=== PATIENT | male | born 1985 | race African-American/Black ===

== ENCOUNTER 2016-08-17 10:20 | Day surgery (SDC) | payer OTHER ==
[2016-08-17] VITALS (7 sets, daily range): BP systolic 78–127; BP diastolic 55–80; PULSE 70–75; RESP 14–16; O2SAT 97–100
[~2016-08-17] VITALS: Ht 185.4 cm; Wt 80.0 kg
--- NOTE | 2016-08-17 07:32 | PCM.HPANE ---
Patient Data Surgeon Admitting Provider: Attending Provider:Jagdish Nassar MD Primary Care Physician:Harsh Other Provider:Bethany Curiel Anesthesia Reason for Visit Melena, Dysphagia Ht/WT & BMI Body Mass Index Allergies Coded Allergies: No Known Drug Allergies (Verified Allergy, Unknown, 08/16/16) Past Anesthesia History Anesthesia History: Denies:: Abnormal Airway, Difficult Intubation Diabetes History Hx Diabetes?: No MRSA MRSA: No Medications Hypertension Medication: No Home Meds Incl Beta Hazel: No Reported Medications Omeprazole 20 Mg Capsule.dr20 Mg PO DAILY Ref 0 08/17/16 History History of ENT Problems?: No Hx of Heart Problems?: No Hx of Respiratory Problem?: No Hx Neurologic Problems?: No Hx of GI Problems?: No Hx of Problems?: No HX of Peritoneal Dialysis: No Hx Musculoskeletal Problems?: No Hx of Psycho/Social Problems?: No Hx Surgeries?: No Hx Any Other Health Problems?: No Hx Diabetes: No Hx Alcohol Use: NoHx Substance Use: No Stop/Bang Treated for Sleep Apnea?: No Do You Have a CPAP Machine?: No Risk Assessment Category Category 1A: Patient has history of documented sleep apnea, and HAS NOT received any narcotic, sedative or anesthesia administration during this stay. Category 1B: Patient has history of documented sleep apnea, and HAS received any narcotic , sedative or anesthesia administration during this stay Category 2: Patient has SUSPECTED Obstructive Sleep Apnea, and HAS received any narcotic , sedative or anesthesia administration during this stay. Category 3: Patient has SUSPECTED Obstructive Sleep Apnea and HAS NOT received narcotic, sedative or anesthesia administration during this stay. Category 4: Outpatient in Procedural Areas with known sleep apnea or who screen positive for High Risk via the STOP/BANG questionnaire. Exam Exam General Appearance: Alert, Oriented X3, Cooperative, No Acute Distress HEENT/AIRWAY: MP 2 Lungs: Clear to Auscultation, Normal Air Movement Heart: Exam Unremarkable, Regular Rate/Rhythm, No Murmurs/Rubs/Gallops Plan Impression Patient chart reviewed, patient interviewed and anesthestic plan with risks, benefits, and alternatives discussed, and informed consent obtained. ASA Physical Status: ASA2 Mod Systemic Disease Anesthetic Plan: MAC Bene/Risks/Altern/Consents: Yes HP Complete Prior to Induction: Yes Chaparro Queen MD Aug 17, 2016 07:32
[2016-08-17] MEDS ORDERED: OMEP20CA11 PO (10:40)
[2016-08-17] MEDS ORDERED: Lactated Ringer's 1,000 ML IV SCH (11:34)
[2016-08-17] MEDS ORDERED: MetoCLOpramide 5 mg/mL 2 mL Inj IVPUSH PRN (11:35)
[2016-08-17] MEDS ORDERED: Ondansetron 2 mg/mL 2 mL Inj IVPUSH PRN (11:35)
[2016-08-17] MEDS: Lactated Ringer's 1,000 ML IV ONE ×3 (11:39→11:57)
--- NOTE | 2016-08-17 13:27 | ENDO ---
[address] [address] ENDOSCOPY PROCEDURE PATIENT: UMM POE : 1985 MR#: [id number] ADMIT: 08/17/2016 JOB ID: [id number] DATE: 08/17/2016 PROCEDURE: Esophagogastroduodenoscopy with biopsy and a colonoscopy. INDICATIONS: A 31-year-old male with symptoms of intermittent dysphagia and odynophagia of uncertain etiology. He also reports constipation and hemorrhoidal bleeding at times. He has a family history of colon cancer in his dad in his 60s. EQUIPMENT: PCF H 190 L and a GIFH 180 J. SEDATION: Monitored anesthesia as provided by Dr. Chaparro Queen. COMPLICATIONS: None identified. BOWEL PREPARATION: Fair, adequate examination. PROCEDURAL INFORMATION: After the risks and benefits were explained, written and verbal informed consent was obtained. The patient was brought into the endoscopy suite and placed into the left lateral decubitus position. Sedation was achieved using the above-stated medications with the addition of oxygen via nasal cannula. The scope was introduced into the mouth through the bite block, and advanced under direct visualization to the second portion of the duodenum. The scope was slowly withdrawn to carefully examine the mucosa for any defects or lesions. Retroflexed views were accomplished in the stomach. The stomach was decompressed. The scope removed the patient who tolerated the procedure well. The patient was then turned around. A digital rectal examination accomplished. Mild to moderate internal hemorrhoids, nonbleeding, nonthrombosed identified. The scope was introduced into the rectum and advanced under direct visualization to the cecum as identified by the appendiceal orifice and ileocecal valve. The scope was slowly withdrawn to carefully examine the mucosa for any defects or lesions. Multiple direct views were made through the dentate line for exclusion of pathology. The colon was decompressed. The scope removed the patient who tolerated the procedure well. FINDINGS: 1. Duodenum: This appeared visually normal from the bulb through to the second portion. 2. Stomach: Mild diffuse gastropathy identified. Random biopsy was taken for exclusion of Helicobacter or any other underlying histopathology. No ulcers. No mass lesions. No outlet obstruction. Retroflexed views of the LES were unremarkable. 3. Esophagus: The squamocolumnar junction correlated with the top of the gastric folds. The GE junction was judged to be at approximately 42 cm from the incisors. The patient had a relatively relaxed lower esophageal sphincter mechanism and a very subtle sliding hiatal hernia. However, no other pathology was seen in the esophagus. 4. Colon: The patient had a diffuse melanosis coli. No evidence of proctitis. No colitis. No significant polyps or mass lesions throughout. Moderate internal hemorrhoids were noted on direct views. ENDOSCOPIC DIAGNOSES: 1. Subtle sliding hiatal hernia. 2. Mild gastropathy. Record. 3. Melanosis coli. 4. Hemorrhoids. RECOMMENDATIONS: 1. Await histopathology. 2. If Helicobacter is found, it will need to be eradicated with standard triple therapy. 3. The patient is asymptomatic with respect to swallowing at present. No further intervention is recommended at this time. 4. The patient is encouraged to utilize warm Epsom salts as needed for hemorrhoidal engorgement and/or irritation. He is also encouraged to incorporate 2 tablespoons of ground flaxseed fiber mixed with 8 ounces of water or juice each day to help become more regular with soft fully evacuated movements. Follow up in GI clinic p.r.n. 5. Repeat colonoscopy at age 38 considering family history.
--- NOTE | 2016-08-17 15:39 | PCM.ANEP1 ---
Post Anesthesia Phase 1 PACU Phase 1 Assessment Vital Signs Vital Signs Date Time Temp Pulse Resp B/P Pulse Ox O2 Delivery O2 Flow Rate FiO2 08/17/16 12:52 70 16 111/80 100 Room Air 08/17/16 12:42 70 14 109/74 100 Room Air 08/17/16 12:32 71 16 104/65 100 Room Air 08/17/16 12:22 71 14 93/67 99 Room Air 08/17/16 12:17 71 14 79/58 97 Room Air 08/17/16 12:12 36.3 75 16 78/55 97 Room Air 08/17/16 10:38 36.5 71 14 127/75 100 Room Air Anesthetic Administered: MAC Level of Alertness: Awake, talking Pain: No Nausea or Vomiting: No Oxygen Delivery: Nasal Cannula Lungs: Clear to Auscultation, Normal Air Movement Dermatome Level: Full Sensation Chaparro Queen MD Aug 17, 2016 15:39
--- NOTE | 2016-08-17 15:40 | PCM.ANEP2 ---
Post Anesthesia Evaluation ASA/CMS Post Anesthesia VS in Patient's Normal Range?: Yes Resp Stable; Airway Patent?: Yes CV Function & Hydration Stable: Yes Mental Status Recovered?: Yes Pain control Satisfactory?: Yes N/V Control Satisfactory?: Yes Chaparro Queen MD Aug 17, 2016 15:40
--- NOTE | 2016-08-18 13:37 | PATH ---
SURGICAL PATHOLOGY Attending Physician:Cynthia Kuhn CASE STATUS: Signed Out PATIENT NAME: UMM POE PID: [id number] : 1985 DATE COLLECTED:08/17/2016 23:13 SPECIMEN: Gastric, Biopsy CLINICAL HISTORY: DYSPHAGIA BRBPR GASTROPATHY 1). 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 Immunohistochemistry for Helicobacter pending, to be reported by addendum. Negative for intestinal metaplasia. Negative for dysplasia and malignancy. ICD10 code K29.70 GROSS DESCRIPTION: The specimen is received in one formalin filled container labeled with the patient's name, sublabeled "gastric" and consists of a 0.4 x 0.3 x 0.3 CM portion of tissue which is entirely submitted in one cassette. 08/18/2016 DAC MICRO DESCRIPTION: See diagnosis. ICD-9 CODES: CPT CODES: 1: 62725, 78354 PROCEDURE/ADDENDA: Immunohistochemistry SPI Interpretation {Not Entered} Results-Comments Immunohistochemical stains of the gastric mucosa are performed to further evaluate for the presence of Helicobacter organisms. The patient tissue is stained with polyclonal antibody to Helicobacter pylori. The positive control stains appropriately. Result: The patient tissue is positive for abundant Helicobacter organisms. Interpretation: The gastric mucosa is positive for Helicobacter pylori by immunohistochemical stains. This test was developed and its performance characteristics determined by [facility]. It has not been cleared or approved by the [place]. Food and Drug Administration. The FDA has determined that such clearance or approval is not necessary. This test is used for clinical purposes. It should not be regarded as investigational or for research. ICD10 code B96.81 Electronically Signed Out Eleanor Rey MD Electronically Signed Out Jagdish Olivier MD [facility] Pathology [facility] [address], [place] [address] Technical component performed at [facility], [address], [place], [address]
== END 2016-08-17 23:59 | disposition home or self-care (01) ==
LOC: END 10:20
PROVIDERS: ATTEND Internal Medicine Gastroenterology
DX: K59.00 Constipation, unspecified (principal); K64.8 Other hemorrhoids; K63.89 Other specified diseases of intestine; Z80.0 Family history of malignant neoplasm of digestive organs; K29.50 Unspecified chronic gastritis without bleeding; K44.9 Diaphragmatic hernia without obstruction or gangrene; K31.9 Disease of stomach and duodenum, unspecified; F41.9 Anxiety disorder, unspecified; F12.90 Cannabis use, unspecified, uncomplicated
CPT/HCPCS: 43239; 45378; J7120